=== PATIENT | male | born 1960 | race Caucasian/White ===

== ENCOUNTER 2021-02-15 12:09 | Inpatient (IN) | payer OTHER ==
[~2021-02-15] VITALS: Ht 188 cm; Wt 83.9 kg
[2021-02-15] MEDS ORDERED: LIPITO PO (14:06)
[2021-02-15] MEDS ORDERED: SYNTHROID88 MCG PO (14:06)
[2021-02-15] MEDS ORDERED: PRILOS PO (14:07)
[2021-02-15] MEDS ORDERED: GABAPEN PO (14:07)
[2021-02-15] MEDS ORDERED: ZANTAC PO (14:08)
[2021-02-15] MEDS ORDERED: ACETAMIN PO (14:08)
[2021-02-21] MEDS ORDERED: OMEPRAZOLE20 MG (13:03)
[2021-02-21] MEDS ORDERED: IRBESARTAN-HCT1 EACH (13:03)
[2021-02-21] MEDS ORDERED: BUPROPION HCL150 M1 (13:03)
[2021-02-21] MEDS ORDERED: ALPRAZOLAM0.5 MG (13:03)
[2021-02-21] MEDS ORDERED: GABAPENTIN300 M2 (13:03)
[2021-02-21] MEDS ORDERED: ATORVASTATIN CA20 MG (13:04)
[2021-02-21] MEDS ORDERED: DICLOFENAC SOD100 GM (13:04)
[2021-02-21] MEDS ORDERED: CILOSTAZOL50 MG (13:04)
[2021-02-21] MEDS ORDERED: ZANTAC25 MG/1 ML (13:05)
[2021-02-21] MEDS ORDERED: PRILOSEC OTC20 MG (13:05)
[2021-02-21] MEDS ORDERED: ACETAMINOPHEN325 M1 (13:05)
[2021-02-21] MEDS ORDERED: MEDROLPACK PO (17:17)
[2021-02-21] MEDS ORDERED: COLACE100 MG PO (17:17)
[2021-02-21] MEDS ORDERED: DIAZEPAM5 MG PO (17:17)
[2021-02-21] MEDS ORDERED: PERCOCET 5-3251 EACH PO (17:17)
[2021-02-22] MEDS ORDERED: ZOFRAN8 MG PO (07:53)
[2021-02-22] MEDS ORDERED: ACETAMINOPHEN-1 EAC2 PO (12:42)
== END 2021-02-22 13:21 | disposition home or self-care (01) | DRG 473 ==
LOC: EDSTATUS 12:15 → ADM 12:15 → O/R 02-21 07:06 → PED 02-21 07:06 → SURH 02-21 12:15 → PED 02-21 21:34
PROVIDERS: ADMIT Orthopaedic Surgery Orthopaedic Surgery of the Spine; ATTEND Orthopaedic Surgery Orthopaedic Surgery of the Spine
PROC: XRG20F3 Fusion of 2 or more Cervical Vertebral Joints using Radiolucent Porous Interbody Fusion Device, Open Approach, New Technology Group 3 (ICD-10-PCS; 2021-02-21)
PROC: 07DS3ZZ Extraction of Vertebral Bone Marrow, Percutaneous Approach (ICD-10-PCS; 2021-02-21)
PROC: 0RT30ZZ Resection of Cervical Vertebral Disc, Open Approach (ICD-10-PCS; principal; 2021-02-21 15:30)
DX: M50.023 Cervical disc disorder at C6-C7 level with myelopathy (principal); M48.02 Spinal stenosis, cervical region; E03.8 Other specified hypothyroidism; I10 Essential (primary) hypertension